=== PATIENT | male | born 1950 | race Caucasian/White ===

== ENCOUNTER 2019-11-23 11:06 | Day surgery (SDC) | payer OTHER ==
[2019-11-21 12:51] VITALS: BMI 30.7
[2019-11-23] MEDS ORDERED: BUPIVACAINE HCL/PF 0.25% (2.5MG/ML) 10 ML VIAL IJ ONE (13:20)
--- NOTE | 2019-11-23 14:10 | OP ---
DATE OF OPERATION: 11/23/2019 PREOPERATIVE DIAGNOSIS: Right knee medial meniscus tear. POSTOPERATIVE DIAGNOSIS: Right knee medial meniscus tear. PROCEDURE: Right knee arthroscopy with partial medial meniscectomy, excision of plica. SURGEON: Tyrone Pradhan MD PERSONAL PROPERTY ASSESSOR: MAGDIEL Rouse, whose skillful assistance was necessary for the safe and timely performance of the procedure. Ms. Tillman was able to help provide limb positioning, retraction, and drive the camera. ANESTHESIA: General. POSTOPERATIVE CONDITION: Stable. COMPLICATIONS: None. INDICATIONS: This is a pleasant gentleman suffering from medial knee pain. MRI demonstrated medial meniscus tear. Treatment options including nonoperative versus operative management were reviewed. Operative risks were reviewed in detail including bleeding, infection, neurovascular injury, need for further surgery, postoperative pain and stiffness, progression of osteoarthritis. We discussed medical risks such as heart attack, stroke, DVT, PE, and . I addressed the use of perioperative antibiotic and DVT prophylaxis. I addressed all the patient's questions and concerns. He voiced understanding and elected to proceed. DESCRIPTION OF PROCEDURE: The patient was brought to the operating room where general anesthetic was administered. The right lower extremity was then prepped and draped in the usual sterile fashion. A preoperative dose of antibiotics was given, and the usual timeout procedure was performed. The knee was then marked out. The portal sites were injected subcutaneously with 0.25% Marcaine. A lateral portal was now established using an 11 blade. The arthroscope was now passed into the joint. Examination of the patellofemoral joint demonstrated moderate, diffuse, partial-thickness articular wear. This was noted on the upper portion of the trochlea as well. There was a thickened medial plica noted which was abrading over the medial femoral condyle. The arthroscope was then passed into the notch. Here, the ACL and PCL were visualized to be intact. Medial portal was now established under spinal needle localization. The medial side was inspected. There was [id number], partial-thickness chondral loss along the femoral and tibial surfaces. There was a complex tear involving the posterior horn and body of the medial meniscus. Utilizing meniscal biters as well as a shaver, this was debrided down to a stable base. The arthroscope was then passed into the lateral compartment. Here, the lateral meniscus was noted to be intact. The articular surface was noted to be intact. The meniscus was probed and found to be stable. The arthroscope was now passed into the medial compartment from the medial portal. The anterior portion of the meniscus was now smoothed with a mechanical shaver. The arthroscope was then passed back into the lateral portal. The plica was now debrided utilizing a shaver as well as electrocautery. At this point, the excess fluid was withdrawn from the joint. The portals were sutured using 3-0 nylon. Sterile dressing was placed. Patient was extubated and transferred to recovery room in stable condition. TYRONE PRADHAN M.D. [id number]
[2019-11-23] MEDS ORDERED: oxyCODONE HCL 5 MG TABLET PO PRN (14:12)
[2019-11-23] MEDS ORDERED: ONDANSETRON 4 MG/2 ML VIAL IVPUSH PRN (14:12)
[2019-11-23] MEDS ORDERED: LACTATED RINGERS SOLUTION 1,000 ML IV SCH (14:15)
[2019-11-23 14:23] VITALS: TEMP 98
[2019-11-23 15:28] VITALS: BP 141/84; PULSE 64
== END 2019-11-23 15:28 | disposition home or self-care (01) ==
LOC: FASU 11:06
PROVIDERS: ATTEND Orthopaedic Surgery Sports Medicine
PROC: 0SBC4ZZ Excision of Right Knee Joint, Percutaneous Endoscopic Approach (ICD-10-PCS; 2019-11-23)
PROC: 0SBC4ZZ Excision of Right Knee Joint, Percutaneous Endoscopic Approach (ICD-10-PCS; principal; 2019-11-23 13:05)
DX: S83.241A Other tear of medial meniscus, current injury, right knee, initial encounter (principal); M67.51 Plica syndrome, right knee
CPT/HCPCS: 94760